=== PATIENT | female | born 1990 | race Two or more races ===

== ENCOUNTER 2023-05-18 15:07 | Emergency (ER) | payer OTHER ==
[~2023-05-18] VITALS: Ht 157.5 cm; Wt 68.6 kg
[2023-05-18 18:51] VITALS: BP 106/69; PULSE 90; RESP 18; TEMP 98.9; O2SAT 100
[2023-05-18] MEDS ORDERED: ACETAMINOPHEN 500 MG TAB PO ONE ×2 (19:15→20:00)
[2023-05-18] MEDS ORDERED: ZOFR4T PO (19:38)
[2023-05-18] MEDS ORDERED: AMOX875T3 PO (19:38)
[2023-05-18] MEDS ORDERED: ACET500T58 PO (19:38)
== END 2023-05-18 20:00 | disposition home or self-care (01) ==
LOC: ER 15:07
DX: O99.612 Diseases of the digestive system complicating pregnancy, second trimester (principal); K02.9 Dental caries, unspecified; Z3A.14 14 weeks gestation of pregnancy